=== PATIENT | male | born 1950 | race Caucasian/White ===

== ENCOUNTER 2017-10-13 20:12 | Emergency (ER) | payer MEDICAID ==
[~2017-10-13 20:12] MED LIST: AMOXICILLIN/CLAVULANATE POT 875/125 MG TAB PO SCH; AZITHROMYCIN 250 MG TAB PO SCH
[2017-10-13] MEDS ORDERED: IPRATROPIUM/ALBUTEROL 3 ML DEYVIAL IH ONE (20:27)
[2017-10-13] MEDS ORDERED: AZITHROMYCIN 250 MG TAB PO ONE (20:27)
[2017-10-13] MEDS ORDERED: AMOXICILLIN/CLAVULANATE POT 875/125 MG TAB PO ONE (20:29)
--- NOTE | 2017-10-13 20:31 | EDPHY ---
H & P Stated Complaint: Cough since sunday-from halfway Time Seen by Provider: 10/13/17 20:24 HPI/ROS: CHIEF COMPLAINT: Short of breath HISTORY OF PRESENT ILLNESS: The patient is a 67-year-old man who comes to the emergency department from the homeless halfway complaining of shortness of breath and a cough productive of yellow sputum. He is saturating 91% on room air. He denies history of pulmonary disease. No chest pain. No swelling or edema. He does not think he has had a fever. Severity: Moderate Modifying factors: Exertion REVIEW OF SYSTEMS: Constitutional: denies: chills, fever, recent illness, recent injury EENTM: denies: blurred vision, double vision, nose congestion Respiratory: See HPI Cardiac: denies: chest pain, irregular heart rate, lightheadedness, palpitations Gastrointestinal/Abdominal: denies: abdominal pain, diarrhea, nausea, vomiting, blood streaked stools Genitourinary: denies: dysuria, frequency, hematuria, pain Musculoskeletal: denies: joint pain, muscle pain Skin: denies: lesions, rash, jaundice, bruising Neurological: denies: headache, numbness, paresthesia, tingling, dizziness, weakness Hematologic/Lymphatic: denies: blood clots, easy bleeding, easy bruising Immunologic/allergic: denies: HIV/AIDS, transplant 10 systems reviewed and negative except as noted EXAM: GENERAL: Well-appearing, well-nourished and in no acute distress. HEAD: Atraumatic, normocephalic. EYES: Pupils equal round and reactive to light, extraocular movements intact, sclera anicteric, conjunctiva are normal. ENT: TMs normal, nares patent, oropharynx clear without exudates. Moist mucous membranes. NECK: Normal range of motion, supple without lymphadenopathy or JVD. LUNGS: Very slight wheezing, HEART: Regular rate and rhythm without murmurs, rubs or gallops. ABDOMEN: Soft, nontender, normoactive bowel sounds. No guarding, no rebound. No masses appreciated. BACK: No CVA tenderness, no spinal tenderness, step-offs or deformities EXTREMITIES: Normal range of motion, no pitting or edema. No clubbing or cyanosis. NEUROLOGICAL: Cranial nerves II through XII grossly intact. Normal speech, normal gait. 5/5 strength, normal movement in all extremities, normal sensation , normal reflexes PSYCH: Normal mood, normal affect. SKIN: Warm, dry, normal turgor, no visible rashes or lesions. Source: Patient Exam Limitations: No limitations - Personal History Current Tetanus Diphtheria and Acellular Pertussis (TDAP): No - Medical/Surgical History Hx Asthma: No Hx Chronic Respiratory Disease: No Hx Diabetes: Yes Hx Cardiac Disease: Yes Hx Renal Disease: No Hx Cirrhosis: No Hx Alcoholism: No Hx HIV/AIDS: No Hx Splenectomy or Spleen Trauma: No Other PMH: Stent x1, [place]?, depression, DM2, - Family History Significant Family History: No pertinent family hx - Social History Smoking Status: Current every day smoker Alcohol Use: Heavy Drug Use: Marijuana Constitutional: Initial Vital Signs Temperature (C) 37.1 C 10/13/17 20:17 Heart Rate 78 10/13/17 20:17 Respiratory Rate 16 10/13/17 20:17 Blood Pressure 134/72 H 10/13/17 20:17 O2 Sat (%) 91 L 10/13/17 20:17 O2 Delivery Mode Room Air Allergies/Adverse Reactions: No Known Allergies Allergy (Unverified 10/13/17 20:14) Home Medications: Medication Instructions Recorded Amoxicillin/Clavulanate Pot 875 mg PO BID #14 tab 10/13/17 [Augmentin 875Mg] Aspirin 325 mg (*) 10/13/17 Azithromycin [Zithromax] 250 mg PO DAILY #6 tab 10/13/17 HumuLIN R 10/13/17 Lisinopril 10/13/17 Metformin HCl ER 10/13/17 Metoprolol Succinate 10/13/17 [place]-3 10/13/17 Otc Cough Meds 10/13/17 Prozac 20 MG (*) 10/13/17 Rosuvastatin Calcium 10/13/17 Medical Decision Making - Diagnostics EKG Interpretation: An EKG obtained and was read and documented in trace view. Please see trace view for full reading and report. Sinus rhythm, no acute ischemic changes, similar to previous Imaging Results: Imaging Impressions Chest X-Ray 10/13/17 20:27 Impression: Mild bronchitis. Mild increase in lung markings at both lung bases, which could represent mild scarring, atelectasis, or early infiltrate. Imaging: Discussed imaging studies w/ house calls nurse Radiologist ED Course/Re-evaluation: 9:20 p.m. the patient's sats remained in the low 90s. Occasionally drops below 90 but is easily able to recover. He has sleep apnea and wears BiPAP at night. I suspect he is always somewhat low. We discussed plans. He would prefer to go back to the halfway and take antibiotics. I encouraged him to return if his symptoms worsen. Will start him on Augmentin and azithromycin as well as give him a take-home albuterol. Will fill his prescriptions for him here. Differential Diagnosis: Partial list of the Differential diagnosis considered include but were not limited to; bronchitis, pneumonia, COPD and although unlikely based on the history and physical exam, I also considered DKA, sepsis, acute coronary disease. I discussed these differential diagnoses and the plan with the patient as well as the usual and expected course. The patient understands that the diagnosis is provisional and that in medicine we are not always correct and that further workup is often warranted. Usual and customary warnings were given. All of the patient's questions were answered. The patient was instructed to return to the emergency department should the symptoms at all worsen or return, otherwise to followup with the physician as we discussed. - Data Points Medications Given: Discontinued Medications Albuterol Sulfate (Proventil Inh Prepack) 1 mdi TAKEHOME EDNOW ONE Stop: 10/13/17 21:23 Last Admin: 10/13/17 21:39 Dose: 1 mdi Albuterol/Ipratropium (Duoneb) 3 ml IH EDNOW ONE Stop: 10/13/17 20:28 Last Admin: 10/13/17 20:33 Dose: 3 ml Amoxicillin/Clavulanate Potassium (Augmentin 875mg) 875 mg PO EDNOW ONE PRN Reason: Protocol Stop: 10/13/17 20:30 Last Admin: 10/13/17 20:33 Dose: 875 mg Azithromycin (Zithromax) 500 mg PO EDNOW ONE PRN Reason: Protocol Stop: 10/13/17 20:28 Last Admin: 10/13/17 20:33 Dose: 500 mg Ceftriaxone Sodium/Dextrose (Rocephin 1 Gm (Premix)) 50 mls @ 100 mls/hr IV EDNOW ONE PRN Reason: Protocol Stop: 10/13/17 20:56 Last Admin: 10/13/17 20:37 Dose: Not Given Departure - Departure Disposition: Home, Routine, Self-Care Clinical Impression: Acute bronchitis Qualifiers: Bronchitis organism: unspecified organism Qualified Code(s): J20.9 - Acute bronchitis, unspecified Condition: Fair Instructions: Albuterol (By breathing), Acute Bronchitis (ED) Referrals: Patient,NotPresent [Unknown] - As per Instructions [facility],. [Clinic] - 1-2 days without fail Prescriptions: Amoxicillin/Clavulanate Pot [Augmentin 875Mg] 875 mg PO BID #14 tab Azithromycin [Zithromax] 250 mg PO DAILY #6 tab
--- NOTE | 2017-10-13 20:40 | CPEKG ---
Test Reason : OPEN Blood Pressure : / mmHG Vent. Rate : 078 BPM Atrial Rate : 078 BPM P-R Int : 169 ms QRS Dur : 105 ms QT Int : 467 ms P-R-T Axes : 038 -41 039 degrees QTc Int : 533 ms Sinus rhythm Left axis deviation Prolonged QT interval Confirmed by Donny Quintero ([id number]) on 10/13/2017 8:39:39 PM Referred By: Confirmed By:Donny Quintero
[2017-10-13] MEDS ORDERED: ALBUTEROL INH PREPACK MDI TAKEHOME ONE (21:22)
[2017-10-13 21:45] VITALS: BP 134/80
== END 2017-10-13 21:42 | disposition home or self-care (01) ==
LOC: EDUNIT#
DX: J20.9 Acute bronchitis, unspecified (principal); F17.200 Nicotine dependence, unspecified, uncomplicated; G47.30 Sleep apnea, unspecified; Z59.0 Homelessness

== ENCOUNTER 2017-10-15 04:33 | Inpatient (IN) | payer OTHER, MEDICAID ==
[2017-10-15] MEDS ORDERED: NS 1,000 ML IV ONE ×3 (04:49→06:09)
[2017-10-15] MEDS ORDERED: IPRATROPIUM/ALBUTEROL 3 ML DEYVIAL IH ONE ×2 (04:50→06:53)
[2017-10-15] MEDS ORDERED: methylPREDNISolone SOD SUCC 125 MG/2 ML VIAL IVP ONE ×2 (04:51→13:06)
--- NOTE | 2017-10-15 04:52 | EDPHY ---
H & P Stated Complaint: weakness, sore throat, rash Time Seen by Provider: 10/15/17 04:51 HPI/ROS: HPI CHIEF COMPLAINT: Generalized weakness, rash, feeling unwell, sore throat pain in his extremity specifically left arm left wrist. HISTORY OF PRESENT ILLNESS: 67-year-old male from the homeless detention by EMS for generalized weakness, not feeling well, rash, painful extremities, main is left arm left wrist, also a cough productive in sputum, additionally sore throat. Additionally patient feels nauseous. No chest pain. He presents emergency room from the homeless detention with multiple complaints however upon arrival he has a room air saturation of 77%. Productive cough. Wheezing throughout lung stoll. And also has a rash that is raised erythematous with some central clearing. It does elida. I do not appreciate petechiae purpura. No abscess. There is also noted same left wrist and left forearm redness and warmth and tender palpation with range of motion of the left wrist and left fingers. Of note additionally this patient is a poor historian. Past Medical History: Hypertension, diabetes, obstructive sleep apnea, cardiac stent, Past Surgical History: No recent surgery Social History: Ongoing tobacco abuse. Homeless. Family History: Noncontributory ROS REVIEW OF SYSTEMS: Review of systems limited due to patient being a poor historian. Exam Constitutional poor historian. Sick appearing, however nontoxic, triage nursing summary reviewed, vital signs reviewed, awake/alert. Room air saturation 77% with good waveform. Eyes normal conjunctivae and sclera, EOMI, PERRLA. HENT posterior pharynx I do not appreciate a significant swelling. However there is poor dentition, additionally mucus that is yellow in nature in his posterior pharynx. I do not appreciate stiff neck, moist mucus membranes, no stridor. Not drooling. No signs of Eloy's on exam. Respiratory clear to auscultation bilaterally, normal breath sounds, no respiratory distress, no wheezing. Cardiovascular rate normal, regular rhythm, no murmur, no edema, distal pulses normal. Gastrointestinal soft, non-tender, no rebound, no guarding, normal bowel sounds, no distension, no pulsatile mass. Genitourinary no CVA tenderness. Musculoskeletal no midline vertebral tenderness, full range of motion, no calf swelling, no tenderness of extremities, no meningismus, good pulses, neurovascularly intact. Skin diffuse rash erythematous with central clearing and raised, no particular purpura. No skin sloughing. Neurologic awake, alert and oriented x 3, AAOx3, moves all 4 extremities equally, motor intact, sensory intact, CN II-XII intact, normal cerebellar, normal vision, normal speech. Psychiatric normal mood/affect. Heme/Lymph/Immune no lymphadenopathy. Differential Diagnosis: Includes but is not limited to in a particular order acute pneumonia, sepsis, bacteremia, viral syndrome, throat infection, electrolyte disturbance, dehydration, allergic reaction, rash Medical Decision Making: Plan for this patient IV establishment blood cultures , lactic acid, regular blood work, DuoNeb breathing treatment, IV fluid bolus, IV Solu-Medrol, will perform a CT scan soft tissue neck with IV contrast rule out deep space neck abscess given sore throat, high white count, and patient appearing not very well. Will give broad-spectrum antibiotics IV Zosyn IV vanc. Repeat chest x-ray. Re-evaluation: ED x-ray chest one view: Shows a right lower lobe infiltrate. Blurs the right cardiac border. Additionally there is crowding above the upper lobes of the lung. EKG interpretation by me on record in [employer] system. Impression time of EKG 455: Sinus rhythm rate of 91, PVC present. Left anterior fascicular block present. Q-waves V1 V2 V3. CT soft tissue neck with IV contrast shows no abscess. Called to me by Dr. Austin. This CT chest without contrast shows right lower lobe pneumonia. Additionally small area of left lower lobe. This explains hypoxia high white count. Patient has had broad-spectrum antibiotics. Patient is not hypotensive. He is afebrile. He does require supplemental oxygen. 0610AM: Patient noted to have elevated lactic over 4 indicating septic shock. The patient is not hypotensive. Severe sepsis and septic shock protocol has been initiated. Patient is already received 2 L of fluid. Will add 1/3 L fluid for fluid resuscitation. He has already received broad-spectrum antibiotics. The patient is in septic shock with source of pneumonia, blood cultures been pulled. Urine culture, sputum culture, IV vanc and IV Zosyn. He is currently being resuscitated with 3 L of fluid. Patient additionally is dry on exam is hypovolemic. Plan will be to repeat lactic acid after his 3rd L fluid. Watch blood pressure closely. This time he does not need vasopressors. 0654AM: Patient's lactic acid improving. 3.1. Source: Patient, EMS - Personal History Current Tetanus/Diphtheria Vaccine: Yes - Medical/Surgical History Hx Asthma: No Hx Chronic Respiratory Disease: No Hx Diabetes: Yes Hx Cardiac Disease: Yes Hx Renal Disease: No Hx Cirrhosis: No Hx Alcoholism: No Hx HIV/AIDS: No Hx Splenectomy or Spleen Trauma: No Other PMH: Stent x1, [place]?, depression, DM2, sleep apnea, HTN, - Social History Smoking Status: Current every day smoker Constitutional: Initial Vital Signs Temperature (C) 36.6 C 10/15/17 04:45 Heart Rate 93 10/15/17 04:45 Respiratory Rate 16 10/15/17 04:45 Blood Pressure 126/68 H 10/15/17 04:45 O2 Sat (%) 88 L 10/15/17 04:45 O2 Delivery Mode Oxymizer O2 (L/minute) 5 Allergies/Adverse Reactions: No Known Allergies Allergy (Verified 10/15/17 04:48) Home Medications: Medication Instructions Recorded Albuterol [Proventil Inhaler HFA 1 - 2 puffs IH Q4H PRN 10/15/17 (*)] Aspirin [Aspirin 325 mg (*)] 325 mg PO DAILY 10/15/17 Insulin Regular Human [Humulin R 70 unit SC BID 10/15/17 100 units/ml (*)] Lisinopril [Zestril 20 mg (*)] 20 mg PO DAILY 10/15/17 Metoprolol Succinate Xr [Toprol Xl 25 mg PO DAILY 10/15/17 25 mg (*)] [place]-3 Fatty Acids [Fish Oil 1000 2,000 mg PO BID 10/15/17 mg (*)] Rosuvastatin Calcium [Crestor 20mg 20 mg PO DAILY 10/15/17 (*)] metFORMIN HCL [Metformin HCl ER] 1,000 mg PO BID 10/15/17 FLUoxetine [Prozac 20 MG (*)] 60 mg PO DAILY 10/16/17 Medical Decision Making - Data Points Laboratory Results: Laboratory Results 10/15/17 04:52 10/15/17 04:52 Microbiology Results: MICROBIOLOGY 10/15/17 04:55 Blood Blood Culture - Preliminary 10/15/17 05:32 Blood Blood Culture - Preliminary Gram Positive Cocci Clusters 10/15/17 05:32 Blood Blood Panel (PCR) - Final Staph Coagulase Negative Medications Given: Acetaminophen (Tylenol) 650 mg PO Q4HRS PRN PRN Reason: Pain, Mild/Fever, Can Take PO Stop: 04/13/18 08:07 Last Admin: 10/16/17 20:07 Dose: 650 mg Albuterol (Proventil Neb) 3 ml IH Q2HRS PRN PRN Reason: Short of Breath/Dyspnea Stop: 04/13/18 08:07 Last Admin: 10/16/17 18:12 Dose: 3 ml Enoxaparin Sodium (Lovenox) 40 mg SC DAILY [facility]ACOS Stop: 04/13/18 08:59 Last Admin: 10/16/17 09:36 Dose: 40 mg Famotidine (Pepcid) 20 mg PO BID TACOS Stop: 04/14/18 20:59 Last Admin: 10/16/17 20:06 Dose: 20 mg Sodium Chloride (Ns) 1,000 mls @ 125 mls/hr IV CONT [facility]ACOS Stop: 04/13/18 08:14 Last Admin: 10/16/17 22:15 Dose: 1,000 mls Levofloxacin/Dextrose (Levaquin 750 Mg (Premix)) 150 mls @ 100 mls/hr IV DAILY TACOS PRN Reason: Protocol Stop: 11/14/17 09:59 Last Admin: 10/16/17 09:36 Dose: 150 mls Norepinephrine 4 mg/ Sodium (Chloride) 504 mls @ 0 mls/hr IV CONT TACOS; Per Protocol PRN Reason: Protocol Stop: 04/13/18 13:29 Last Admin: 10/15/17 20:08 Dose: 504 mls Insulin Glargine (Lantus Syringe) 30 units SC HS [facility] Stop: 04/14/18 03:14 Last Admin: 10/16/17 20:51 Dose: 30 units Melatonin (Melatonin) 6 mg PO HS [facility] Stop: 04/13/18 23:44 Last Admin: 10/16/17 20:07 Dose: 6 mg [place]ug[place]-8-Guop Ethyl Esters (Fish Oil) 2,000 mg PO BID TACOS Stop: 04/14/18 20:59 Last Admin: 10/16/17 20:06 Dose: 2,000 mg Discontinued Medications Albuterol/Ipratropium (Duoneb) 3 ml IH EDNOW ONE Stop: 10/15/17 04:51 Last Admin: 10/15/17 05:02 Dose: 3 ml Albuterol/Ipratropium (Duoneb) 3 ml IH EDNOW ONE Stop: 10/15/17 06:54 Last Admin: 10/15/17 06:54 Dose: 3 ml Sodium Chloride (Ns) 1,000 mls @ 0 mls/hr IV EDNOW ONE; Wide Open PRN Reason: Protocol Stop: 10/15/17 04:50 Last Admin: 10/15/17 05:02 Dose: 1,000 mls Sodium Chloride (Ns) 1,000 mls @ 0 mls/hr IV ONCE ONE PRN Reason: Wide Open Stop: 10/15/17 05:09 Last Admin: 10/15/17 05:33 Dose: 1,000 mls Vancomycin/Sodium Chloride (Vancomycin 1 Gm (Premix)) 250 mls @ 250 mls/hr IV EDNOW ONE PRN Reason: Protocol Stop: 10/15/17 06:08 Last Admin: 10/15/17 05:38 Dose: 250 mls Piperacillin/Tazobactam/Dextrose (Zosyn (Premix)) 100 mls @ 200 mls/hr IV EDNOW ONE PRN Reason: Protocol Stop: 10/15/17 05:38 Last Admin: 10/15/17 05:34 Dose: 100 mls Sodium Chloride (Ns) 1,000 mls @ 0 mls/hr IV ONCE ONE PRN Reason: Wide Open Stop: 10/15/17 06:10 Last Admin: 10/15/17 06:12 Dose: 1,000 mls Lactated Ringer's (Lr) 1,000 mls @ 500 mls/hr IV EDNOW ONE Stop: 10/15/17 09:07 Last Admin: 10/15/17 07:25 Dose: 1,000 mls Norepinephrine 4 mg/ Sodium (Chloride) 504 mls @ 0 mls/hr IV CONT TACOS; Per Protocol PRN Reason: Protocol Stop: 04/13/18 13:29 Last Admin: 10/15/17 13:35 Dose: 504 mls Famotidine/Sodium Chloride (Pepcid 20 Mg (Premix)) 50 mls @ 200 mls/hr IV Q12 [facility] Stop: 04/13/18 20:59 Last Admin: 10/16/17 09:36 Dose: 50 mls Vancomycin HCl 1.25 gm/ Sodium (Chloride) 250 mls @ 166.667 mls/hr IV Q12H [facility] Stop: 11/14/17 16:59 Last Admin: 10/16/17 05:55 Dose: 250 mls Meropenem 1 gm/ Sodium (Chloride) 100 mls @ 100 mls/hr IV Q8H [facility] Stop: 11/14/17 15:59 Last Admin: 10/16/17 09:08 Dose: 100 mls Calcium Gluconate 1 gm/ (Dextrose) 60 mls @ 120 mls/hr IV ONCE ONE Stop: 10/15/17 17:59 Last Admin: 10/15/17 18:26 Dose: 60 mls Calcium Gluconate (Calcium Gluconate 1 Gm (Premix)) 50 mls @ 100 mls/hr IV ONCE ONE Stop: 10/16/17 04:36 Last Admin: 10/16/17 05:13 Dose: Not Given Calcium Gluconate 1 gm/ Sodium (Chloride) 60 mls @ 120 mls/hr IV ONCE ONE Stop: 10/16/17 04:59 Last Admin: 10/16/17 04:20 Dose: 60 mls Sodium Chloride (Ns) 500 mls @ 0 mls/hr IV ONCE ONE PRN Reason: Wide Open Stop: 10/16/17 18:31 Last Admin: 10/16/17 18:48 Dose: 500 mls Insulin Human Lispro (Humalog Lispro) 0 unit SC TIDMEAL [facility] PRN Reason: Protocol Stop: 04/13/18 17:59 Last Admin: 10/15/17 18:22 Dose: 6 units Insulin Human Lispro (Humalog Lispro) 10 unit SC ONCE ONE Stop: 10/15/17 22:48 Last Admin: 10/15/17 23:38 Dose: 10 units Insulin Human Lispro (Humalog Lispro) 0 unit SC ACHS [facility] PRN Reason: Protocol Stop: 04/14/18 07:29 Last Admin: 10/16/17 18:20 Dose: 10 units Insulin Human Lispro (Humalog Lispro) 10 unit SC ONCE ONE Stop: 10/16/17 18:31 Last Admin: 10/16/17 18:46 Dose: Not Given Methylprednisolone Sodium Succinate (Solu-Medrol) 125 mg IVP EDNOW ONE Stop: 10/15/17 04:52 Last Admin: 10/15/17 05:05 Dose: 125 mg Methylprednisolone Sodium Succinate (Solu-Medrol) 60 mg IVP Q6HRS [facility] Stop: 04/13/18 11:59 Last Admin: 10/15/17 12:13 Dose: 60 mg Methylprednisolone Sodium Succinate (Solu-Medrol) 60 mg IVP ONCE ONE Stop: 10/15/17 13:07 Last Admin: 10/15/17 13:35 Dose: 60 mg Methylprednisolone Sodium Succinate (Solu-Medrol) 125 mg IVP Q6HRS [facility] Stop: 04/13/18 17:59 Last Admin: 10/16/17 06:16 Dose: 125 mg Point of Care Test Results: Chemistry 10/15/17 10/15/17 05:05 05:01 POC Sodium 133 mEq/L L mEq/L (135-145) POC Potassium 4.2 mEq/L mEq/L (3.3-5.0) POC Chloride 98 mEq/L mEq/L (97-110) POC BUN 34 mg/dL H mg/dL (7-23) POC Creatinine 1.6 mg/dL H mg/dL (0.7-1.3) POC Glucose 177 mg/dL H mg/dL (70-100) POC Troponin I 0.04 ng/mL ng/mL (0.00-0.08) ISTAT H&H 10/15/17 05:01 POC Hgb 19.0 gm/dL H gm/dL (13.7-17.5) POC Hct 56 % H % (40-51) Departure - Departure Disposition: [facility] Inpatient Acute Clinical Impression: Hypoxic, Septic shock Pneumonia Qualifiers: Pneumonia type: due to unspecified organism Laterality: right Lung location: lower lobe of lung Qualified Code(s): J18.1 - Lobar pneumonia, unspecified organism Sepsis Qualifiers: Sepsis type: sepsis due to unspecified organism Qualified Code(s): A41.9 - Sepsis, unspecified organism Condition: Fair
[2017-10-15 04:57] LABS: PLATELET COUNT 379 10^3/uL (150-400)
[2017-10-15] MEDS ORDERED: IOPAMIDOL (ISOVUE-300) 100 ML BTL ONE (04:58)
[2017-10-15] MEDS ORDERED: ONDANSETRON 4 MG/2 ML VIAL ONE (05:03)
[2017-10-15 05:05] LABS: INR 1.34 (0.83-1.16); PROTIME(PATIENT) 16.8 SEC (12.0-15.0)
[2017-10-15] MEDS ORDERED: VANCOMYCIN HCL/NORMAL SALINE 250 ML IV ONE (05:09)
[2017-10-15] MEDS ORDERED: PIPERACILLIN/TAZO 4.5 GM/DEX 100 ML IV ONE (05:09)
[2017-10-15] MEDS ORDERED: IPRATROPIUM/ALBUTEROL 3 ML DEYVIAL ONE (06:51)
[2017-10-15] MEDS ORDERED: LR 1,000 ML IV ONE (07:08)
[2017-10-15] MEDS ORDERED: ONDANSETRON 4 MG/2 ML VIAL IVP PRN (08:08)
[2017-10-15] MEDS ORDERED: ALBUTEROL 3 ML DEYVIAL IH PRN (08:08)
--- NOTE | 2017-10-15 09:31 | GHP ---
DATE OF ADMISSION: 10/15/2017 CHIEF COMPLAINT: Sepsis, hypoxia. HISTORY OF PRESENT ILLNESS: A 67-year-old homeless male with coronary disease, diabetes, hypertensio n brought in from halfway with generalized weakness. He was evaluated at [facility] ER on October 13 for shortness of breath and productive cough. Was discharged and prescribed Augmenti n. Symptoms have progressed: He complains of fevers, chills, productive cough, sore throat, and fat igue. He has had loose stools for several days. No nausea, vomiting, decreased p.o. intake. Compla ins of joint pain in his hands and his wrist. He developed a rash sometime over this past week, he c annot clarify the date. He was in a hot tub a few days ago. The skin eruptions began prior to start ing Augmentin. Denies chest pain. In the ER, he had a room air saturation of 77%. He has been living in a halfway for the past 10 days. He had a place to stay prior to that. He has not had any exposures to any animals. No recent travel. He thinks he may have had some bug bites in his left groin a few days ago. REVIEW OF SYSTEMS: I completed a 10-point review of systems, negative except as noted in HPI. PAST MEDICAL HISTORY: Hypertension, diabetes, GIANFRANCO, NSTEMI with RCA stent. PAST SURGICAL HISTORY: PCI. SOCIAL HISTORY: He is homeless. He has currently been in a halfway for the past 10 days. He smoked a half-pack of cigarettes for over 30 years. No alcohol or illicits. FAMILY HISTORY: Brother with heart disease. HOME MEDICATIONS: Crestor, Prozac, metoprolol, metformin, lisinopril, Humulin, azithromycin, Augment in, aspirin. ALLERGIES: No known drug allergies. PHYSICAL EXAM: VITAL SIGNS: Temperature in 36.5; blood pressure 98/65 at admission, now 145/85 afte r fluids; heart rate is in the 80s, respirations 20 to 30s, 77% on room air, 90% on 12 L Oxymizer. G ENERAL: He is ill-appearing, but no acute distress. HEENT: PERRLA. Dry mucous membranes. Orophar ynx is dry with mild erythema. No exudate. NECK: No palpable mass in neck. CV: Regular rate and rhythm. LUNGS: Diminished. Rhonchi throughout. ABDOMEN: Soft, nontender, nondistended. Positive bowel sounds. : No Wang. No suprapubic or CVA tenderness. MUSCULOSKELETAL: Bilateral hands a re swollen. Tenderness over his joints. Mild synovitis. SKIN: Raised maculopapular rash over uppe r chest, arms and legs and groin. The back is not involved. NEURO: 2 through 12 intact. PSYCH: A lert and oriented. Very pleasant. LABS: Sodium is 133, potassium 4.2, chloride 98, BUN 34, creatinine is 1.6, glucose 177. Troponin 0 .04. BNP is 780, calcium 9.4, mag 1.8, total bilirubin 1, conjugated 0.3, AST 26, ALT 39, total prot ein 6.6, albumin 3.4, INR 1.3, PT 16; lactate 4.1, repeat is 3.1. WBC 34. Hemoglobin 18, hematocrit 53, platelets are 379. Urine is pending. Chest x-ray, personally reviewed by me, right lower lobe opacity, which has evolved since x-ray on . Chest CT, personally reviewed by me, right lower lobe opacity, radiologist callum w is pending. CT is pending. EKG personally reviewed by me, normal sinus rhythm with PVCs. Q-waves anterior leads. ASSESSMENT AND PLAN: Severe sepsis: Elevated white count, pneumonia, tachycardia, lactic acidosis. Evidence of pneumonia. CT scan is pending. Was dosed vancomycin and Zosyn in the ER. Will continu e with Levaquin because may have possible penicillin allergy with rash. DICTATION CANCELLED /[id number]/MODL
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
--- NOTE | 2017-10-15 11:00 | ASMTLACE ---
LACE Length of stay for Answers: Less than 1 day current admission Acuity / Level of Answers: Yes Care: Did the patient have an inpatient admission? # of Emergency department Answers: 1-2 visits in the last 6 months Social determinants Answers: Homelessness (street, intermediate) Lack of community resources and/or lack of social support (no pcp, lives alone, transportation, actarino d) Score: 11 Date Signed: 10/15/2017 11:00 AM Electronically Signed By:Marilyn Ziegler LCSW
[2017-10-15] MEDS ORDERED: ALTEPLASE 2 MG VIAL IVP PRN (11:05)
[2017-10-15] MEDS ORDERED: levOFLOXACIN 750 MG/DEXTROSE/150 ML BAG IV ONE (11:13)
--- NOTE | 2017-10-15 11:13 | ASMTCMCOM ---
CM Note CM Note Notes: Pt is currently living at the [facility]. This caption writer attempted to speak with pt. but due to his current condition (sepsis, pneumonia) he was extremely lethargic and unable to arouse. Pt has not been in the area for some time. His chart indicates that he is retired but income is unknown. Additional resources and assessment may be beneficial. DESHAUN THOMAS CM to follow Date Signed: 10/15/2017 11:12 AM Electronically Signed By:Marilyn Ziegler LCSW
[2017-10-15] MEDS: NS 1,000 ML IV SCH ×2 (11:21→23:39)
[2017-10-15] MEDS: ENOXAPARIN 40 MG/0.4 ML SYR SC SCH (11:34)
[2017-10-15] MEDS ORDERED: methylPREDNISolone SOD SUCC 125 MG/2 ML VIAL IVP SCH ×2 (12:00→13:07)
[2017-10-15] MEDS ORDERED: PIPERACILLIN/TAZO 4.5 GM/DEX 100 ML IV SCH (12:00)
[2017-10-15] MEDS ORDERED: methylPREDNISolone SOD SUCC 125 MG/2 ML VIAL ONE (12:11)
[2017-10-15] MEDS ORDERED: NOREPINEPHRINE BITARTRATE 4 MG in D5W 500 ML IV SCH (13:30)
[2017-10-15] MEDS ORDERED: NOREPINEPHRINE BITARTRATE 16 MG in NS 250 ML IV SCH (13:30)
[2017-10-15] MEDS ORDERED: NOREPINEPHRINE BITARTRATE 4 MG in NS 500 ML IV SCH (13:30)
--- NOTE | 2017-10-15 13:43 | GCON ---
SUPERVISOR PIPE FINISHING CONSULTATION REASON FOR ADMISSION: Pneumonia, acute respiratory failure, shock. Mr. Moreira is a pleasant 67-yea r-old white male with a past medical history of hypertension, obstructive sleep apnea, coronary arter y disease with a stent placed, diabetes and hypertension. He was brought from a fdc with general ized weakness. He was seen previously in the emergency room here and discharged on Augmentin. He re turns with fever and chills, as well as a cough that is productive of greenish sputum. He denies hem optysis. He denies any chest pain, pleuritic-type chest pain or angina equivalent. There is no feve r or night sweats. He began having a rash that occurred prior to taking Augmentin apparently. In th e emergency room he was found to be markedly hypoxemic and he was admitted to the intensive care unit . In discussion with the patient, he states he feels somewhat better. He is less breathless, but hi s cough remains. REVIEW OF SYSTEMS: 10-point review of systems is performed and negative except for what is listed in HPI. PAST MEDICAL HISTORY: Again, significant for coronary artery disease with a stent, obstructive sleep apnea, hypertension, diabetes. PAST SURGICAL HISTORY: Again, he has had a stent. ALLERGIES: No known allergies to medications. SOCIAL HISTORY: He is a 40+ pack-year smoker and continues to smoke. Denies any alcohol use. He is homeless. 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 He is single, without children. He has lived in [facility] for many years, but is really from [place]. FAMILY HISTORY: Noncontributory. MEDICATIONS: Include; aspirin, Augmentin, Humulin, azithromycin, lisinopril, metformin, metoprolol, Prozac, and Crestor. PHYSICAL EXAM: VITAL SIGNS: Blood pressure is 84/48, pulse is 88, respirations 32, temperature 37.0 , oxygen saturation is 92% on 10 L OxyMask. GENERAL: He is a well-developed 67-year-old white male who is resting comfortably on supplemental oxygen. HEENT: Eyes STARR, EOMI. Throat exam is deferred secondary to oxygen. NECK: Supple. No cervical adenopathy. HEART: Regular rate and rhythm with a 2/6 systolic murmur left sternal border without radiation. LUNGS: Diminished breath sounds with s ignificant prolongation expiratory phase and few bibasilar crackles. ABDOMEN: Soft, nontender. [place] el sounds are present in all 4 quadrants. EXTREMITIES: No clubbing, cyanosis, or edema. SKIN: The re is a raised maculopapular rash extending in the groin, legs, arms, upper chest. LABORATORIES: White count 77524, hemoglobin 18, hematocrit 53, platelet count is 379. INR is 1.34. Sodium 133, potassium 4.2, chloride 98, CO2 is 22, BUN is 32, creatinine 1.5, glucose is 143. BNP i s elevated at 780. CT scan of the chest without contrast shows moderate bronchitis as well as bilateral pneumonia in the bases. IMPRESSION: 1. Pneumonia. 2. Acute respiratory failure secondary to above. 3. Severe sepsis. 4. Shock. 5. Mild renal insufficiency, probably prerenal. 6. History of hypertension. 7. Diabetes. 8. Obstructive sleep apnea. 9. History of coronary artery disease. RECOMMENDATIONS: 1. Agree with Admission Intensive Care Unit. 2. We will start IV pressors. 3. Hydration. He has already received 3 L of normal saline. 4. IV antibiotics as you are doing. 5. Nebulized both albuterol and Atrovent. 6. We will increase his Solu-Medrol to 125 q.6. 7. DVT and PE prophylaxis. 8. Aggressive blood sugar control. 9. Sepsis protocol. /[id number]/MODL
[2017-10-15] MEDS ORDERED: FAMOTIDINE 20 MG/NACL 50 ML IV SCH (13:45)
[2017-10-15] MEDS ORDERED: D50W 25 GM/50 ML SYR IVP PRN (15:33)
[2017-10-15] MEDS: MEROPENEM 1 GM in NS 100 ML IV SCH ×2 (15:47→23:39)
--- NOTE | 2017-10-15 16:02 | GCON ---
INFECTIOUS DISEASE CONSULT DATE OF CONSULTATION: 10/15/2017 REFERRING PHYSICIAN: Jimena Torres MD REASON FOR CONSULT: To assist in the management of this 67-year-old homeless male, admitted with sepsis. HISTORY OF PRESENT ILLNESS: Please note, the history was obtained from the chart and the patient. The patient was fairly short of breath when I examined him and unable to provide significant medical history. The patient is a 67-year-old male whose previous medical history is notable for the followin. Diabetes mellitus: This is followed at the [facility]. The patient states that his most recent hemoglobin A1c was "down.". 2. Obstructive sleep apnea. 3. NSTEMI with RCA stent. 4. Hypertension. 5. Heavy smoker. Regarding his present issues, the patient states that he began to feel unwell perhaps on October 11 or so. He states that he felt very tired and generally felt unwell. He developed a sore throat and a cough. He presented to [facility] Emergency Department in the evening of October 13, where his vital signs were notable for an oxygen saturation of 90% on room air, that dropped below 90% intermittently. A chest x-ray was performed that showed increased lung markings at both lung bases, that could represent mild scarring, atelectasis, or early infiltrate. The patient was given a dose of ceftriaxone intravenously, and discharged with Augmentin 875 mg p.o. b.i.d. for 7 days, a Z- Charles, and an albuterol inhaler. He was told to follow up with the [facility]. The patient states that he took "a few doses" of the antibiotics, but continued to feel unwell. Because of that, he re-presented to [facility] Emergency Department early this morning, at which point he was complaining of weakness, a new rash, and a significant cough and sore throat. The patient had a room air saturation of 77% upon arrival with a productive cough. He had a CT scan of the chest that showed right lower lobe and mild left lower lobe infiltrates. His white blood cell count was found to be elevated at 34,000. The patient was admitted to the intensive care unit and given a dose of vancomycin and Zosyn. However, because of the rash, the Zosyn was discontinued and the patient was given a dose of levofloxacin. He is unfortunately decompensating and now requiring pressors. I am now asked to assist in his management. In speaking with the patient today, he is complaining of a mild sore throat and a cough. He does not know when the rash started. He states that it is not pruritic. The note from the emergency room on October 13 does not comment on any rash. He states he has no recent travel within or outside the [facility]. He has recently become homeless over the past 10 days, when he states he was living in a house with some other roommates. Ultimately, he states that he was the only 1 living there after a point in time, but the owners of the house gracefully evicted him, he tells me. He has been living in a [place] homeless intermediate again for the past 10 days. He also states he just recently had a negative TB test. He has no pets. No recent vaccinations. He states he did receive all of his childhood vaccinations. He has gone to the hot tub at the [facility] twice, most recently 4 days ago, but he states that he began to feel sick prior to any exposure to the hot tub per se. No exposure to birds. He is a heavy smoker as outlined above. No other illicit substances. He is not presently sexually active. He states that his last sexual activity was "years ago." He is not around small children. REVIEW OF SYSTEMS: As per the above. Notable for sore throat, cough, and shortness of breath. The patient also had some pain in his fingers which he says is new. Otherwise 10 systems are reviewed and all are negative. PREVIOUS MEDICAL HISTORY: As outlined above. PREVIOUS SURGICAL HISTORY: None. FAMILY HISTORY: Brother with heart disease. SOCIAL HISTORY: As outlined above, including exposure history. The patient is a heavy smoker. He adamantly denies any alcohol. Please see exposure history above. ALLERGIES: No known drug allergies. MEDICATIONS: At home, included Crestor, Prozac, metoprolol, metformin, lisinopril, Humulin, Augmentin 875 p.o. b.i.d. of which he took a few doses, Z- Charles which he also took perhaps 2-3 doses, and aspirin. Medications presently include norepinephrine. He was given a dose of Zosyn 4.5 g, 1 g of vancomycin, and levofloxacin 750 mg. He is also on Solu-Medrol 125 mg q.6 hours. PHYSICAL EXAM: VITAL SIGNS: T-current 37, T-max same. Heart rate is 88, blood pressure 84/48 on 10 mcg of norepinephrine. GENERAL: Somewhat disheveled male, nontoxic with a face mask in place, looks short of breath. HEENT: Atraumatic, normocephalic. Pupils equal, round, reactive to light. Extraocular movements are intact. No conjunctival injection, icterus, or petechiae. Mucous membranes are moist. Dentition in poor repair, but I cannot appreciate any oral lesions. Difficult to examine his oropharynx given the face mask and difficulty breathing. No discharge from the nares or sinus process tenderness. Trachea is midline. NECK: No cervical or supraclavicular adenopathy. CARDIOVASCULAR: S1, S2. I cannot appreciate any rubs, gallops, or murmurs. LUNGS: Diminished breath sounds at both lung bases. Poor inspiratory effort. ABDOMEN: Soft. No organomegaly or tenderness to palpation. EXTREMITIES: His hands are notable for sausage digits in both hands with extreme tenderness with flexion and extension. The feet are unremarkable. He does have some mild discomfort flexing and extending his wrists as well. The knees, elbows, shoulders, and rest of the joints are without evidence of arthritis. SKIN: The skin is notable for multiple erythematous, raised, serpiginous macules/patches, some of which have central clearing and almost appear targetoid on his thighs. These are scattered on his forehead, anterior chest, arms, abdomen, anterior aspects of his lower extremities, and groin. They spare his palms and soles. He has no lesions on his back or buttocks. They are blanching and nonpruritic. There are no bullae and no vesicles. There are no intraoral lesions. NEUROLOGIC: He is alert and oriented x3. Moving all 4 extremities. MICROBIOLOGIC DATA: Sputum culture is pending. Nasal respiratory panel PCR showed human rhinovirus/enterovirus. Urine culture, blood cultures x2 are pending. White blood cell count of 17, down from 34 upon admission. Hematocrit of 45, platelet count of 284. 92% neutrophils. No eosinophils. BUN and creatinine 31/1.2, creatinine down from 1.5 on admission. Sodium of 133 , AST 26, ALT 39, alkaline phosphatase 99, total bilirubin 0.3. Urinalysis showed highly concentrated specimen. Urine Legionella antigen pending. RADIOGRAPHIC DATA: As outlined above. IMPRESSION: 67-year-old recently homeless, diabetic male with coronary artery disease and obstructive sleep apnea, admitted with sepsis and evidence of pneumonia on chest CT. He also has an unusual rash on the front of his body only, that has aspects that look almost like erythema multiforme. He has no mucous membrane lesions. 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 Insofar as the rash is concerned, I do not feel that this represents more concerning etiologies such as measles, meningococcus, or Carrizales-Harish syndrome as a reaction to recent antibiotics. Thankfully, there is no mucous membrane involvement. That being said, this rash could be a drug eruption, albeit an unusual presentation. The arthralgias and rash are somewhat early for serum sickness, and he only had a few doses of Augmentin. Erythema multiforme can also be caused by pathogens such as mycoplasma. This is not hot tub folliculitis, and does not look typical for a viral exanthem, either. Also of concern would be a vasculitic process, such as polyangiitis with granulomatosis, although patient clearly has septic physiology, the rash does not look consistent with a vasculitis, and there is no evidence of renal involvement. PLAN: 1. Agree with discontinuation of Zosyn in case the rash represents a beta- lactam allergy. 2. Start Vancomycin, Meropenem, and continue levofloxacin for atypical coverage. Will pare down antibiotics accordingly depending on patient's clinical course and microbiology obtained. Will cover broadly up front given clinical deterioration, relative immunosuppression from his multiple comorbidities including diabetes and tobacco use disorder, and risk for MRSA in the setting of homelessness. 3. Initiate droplet precautions for rhinovirus/enterovirus, although doubt this is the primary public transit bus driver of his sepsis. 4. Check HIV, RPR, ANCA testing, GREG, mycoplasma IgM/IgG, hepatitis A, B, C serologies, and parvovirus serologies. 5. Consider skin biopsy if rash worsens. 6. Check inflammatory markers. Thank you very much for consulting Infectious Diseases. Over 90 minutes spent with this patient today. I will continue to follow this patient with you. /[id number]/MODL MTDD
[2017-10-15] MEDS ORDERED: CALCIUM GLUCONATE 50 ML IV ONE (16:57)
[2017-10-15] MEDS ORDERED: PROTOCOL CALCIUM 1 DOSE IV PRN (16:57)
[2017-10-15] MEDS: VANCOMYCIN 1.25 GM in NS 250 ML IV SCH (17:18)
[2017-10-15] MEDS ORDERED: CALCIUM GLUCONATE 1 GM in D5W 50 ML IV ONE (17:30)
[2017-10-15] MEDS ORDERED: INSULIN LISPRO 100 UNIT/ML SC SCH (18:00)
[2017-10-15] MEDS: methylPREDNISolone SOD SUCC 125 MG/2 ML VIAL IVP SCH ×2 (18:17→23:36)
[2017-10-15] MEDS: FAMOTIDINE 20 MG/NACL 50 ML IV SCH (20:07)
[2017-10-15] MEDS ORDERED: INSULIN LISPRO 100 UNIT/ML SC ONE (22:47)
[2017-10-15] MEDS: ACETAMINOPHEN 325 MG TAB PO PRN (23:36)
[2017-10-15] MEDS: MELATONIN 3 MG TAB PO SCH (23:48)
[2017-10-16] MEDS: INSULIN GLARGINE 100 UNITS/ML UNIT SC SCH ×2 (03:33→20:51)
[2017-10-16] MEDS ORDERED: CALCIUM GLUCONATE 50 ML IV ONE (04:07)
[2017-10-16] MEDS ORDERED: CALCIUM GLUCONATE 1 GM in NS 50 ML IV ONE (04:30)
[2017-10-16] MEDS: VANCOMYCIN 1.25 GM in NS 250 ML IV SCH (05:55)
[2017-10-16] MEDS: methylPREDNISolone SOD SUCC 125 MG/2 ML VIAL IVP SCH (06:16)
--- NOTE | 2017-10-16 08:33 | PCMIDPN ---
Assessment/Plan: #Sepsis/hypoxia: only test positive so far is Enterovirus. CT personally reviewed by me and shows some consolidation RLL. Query component of aspiration. Much better this AM. Persistent Leukocytosis but on steroids. --considering legionella, aspiration PNA, severe viral infection with occult underlying lung disease --dc meropenem, vancomycin --continue high dose levofloxacin for CAP, aspiration and atypical coverage --droplet precautions --multiple serologies are still pending, will follow up #Rash: completely resolved, unclear etiology. query due to enterovirus vs drug reaction #Blood cx / CoNS c/w contaminate #Diarrhea: no further, dc cdiff testing for now microbiology 10/15 blood cx 02/13 blood cx : CoNS 10/16 sputum cx: pending Resp PCR: enterovirus meds meropenem 1gm IV q8, #1 vancomycin IV, #1 levofloxacin 750mg IV daily, #2 Solu-Medrol 60 mg IV daily Subjective: patient feels lots better, cough better slept for the first time in a long time no diarrhea about to stand with PT Objective: Vital Signs Temp Pulse Resp BP Pulse Ox 36.6 C 84 24 H 150/56 H 95 10/16/17 04:00 10/16/17 08:10 10/16/17 08:10 10/16/17 08:10 10/16/17 08:10 Microbiology 10/15/17 14:00 - Final Sputum, Expectorated 10/15/17 12:45 Respiratory Panel (PCR) - Final Nasal, Sinus - [place] Viral Transport Human Rhinovirus/Enterovirus Laboratory Results 10/16/17 03:15 10/16/17 03:15 10/15/17 10/16/17 10/17/17 05:59 05:59 05:59 Intake Total 6926 Output Total 1525 175 Balance 5401 -175 ESR 31 MM/HR (0-20) H 10/15/17 18:00 C-Reactive Protein 406.4 mg/L (<10.0) H 10/15/17 18:00 - Physical Exam General Appearance: alert, no apparent distress EENT: dry mucous membranes, No thrush Respiratory: wheezing, coarse breath sounds, No accessory muscle use, No crackles Neck: supple Cardiac/Chest: regular rate, rhythm Extremities: other (B arm and hand edema), No pedal edema Abdomen: normal bowel sounds, non-tender, soft Skin: No jaundice, No pallor, No rash Neuro/Psych: alert, normal mood/affect, oriented x 3 - Line/s RUE PICC Lines: No drainage, No erythema - Time Spent With Patient Time Spent with Patient: greater than 35 minutes Time Spent with Patient: Greater than 35 minutes spent on this patients care, greater than 50% of time spent counseling, educating, and coordinating care regarding the above mentioned plan. ICD10 Worksheet Patient Problems: Problems Problem Status Onset Hypoxic Acute Pneumonia Acute Sepsis Acute Septic shock Acute
[2017-10-16] MEDS: MEROPENEM 1 GM in NS 100 ML IV SCH (09:08)
[2017-10-16] MEDS: INSULIN LISPRO 100 UNIT/ML SC SCH ×3 (09:09→18:20)
[2017-10-16] MEDS: FAMOTIDINE 20 MG/NACL 50 ML IV SCH (09:36)
[2017-10-16] MEDS: ENOXAPARIN 40 MG/0.4 ML SYR SC SCH (09:36)
--- NOTE | 2017-10-16 12:05 | HOSPPROG ---
Hospitalist Progress Note Assessment/Plan: #Septic shock: from Enterovirus, atypical PNA. IV Levaquin Sputum, strep, Legionella pending. Wean off pressors # Acute hypoxic respiratory failure secondary to pneumonia: cont nebs/steroids. Likely underlying COPD as well # Lactic acidosis secondary to acute infection: improving with intravenous fluids. # Acute kidney injury: from infection, decreased p.o. intake. Improving # Diarrhea: Clostridium difficile pending #Sore throat: no neck abscess. Cyst at brachiocephalic vein; does not appear to necrotic #Leukocytosis: from acute infection,hemoconcentrated with dehydration. Steroids contributing too. #Hypotension: from sepsis. Improved with intravenous fluids. Negative troponin , no chest pain #Maculopapular rash: resolved. Viral or abx reaction? Steroids may have helped. Not typical for hot tub folliculitis. #Arthralgias: specifically hands. RF mildly up, can be nonspecific, GREG and other vasculitis studies pending. #Tobacco dependence: Declines nicotine patch. #Coronary artery disease: Resume statin, aspirin and Plavix. # Hypertension: Hold antihypertensive with sepsis. # Depression: Resume home medications. # Diabetes: SSI #DVT: lovenox ICU admission for IV abx, pressors. Subjective: still tired, but feeling better. Less pain in hands Objective: Vital Signs Temp Pulse Resp BP Pulse Ox 36.5 C 87 26 H 109/62 97 10/16/17 09:00 10/16/17 10:00 10/16/17 10:00 10/16/17 10:00 10/16/17 10:00 Microbiology 10/15/17 14:00 - Final Sputum, Expectorated 10/15/17 12:45 Respiratory Panel (PCR) - Final Nasal, Sinus - [place] Viral Transport Human Rhinovirus/Enterovirus Laboratory Results 10/16/17 03:15 10/16/17 03:15 10/15/17 10/16/17 10/17/17 05:59 05:59 05:59 Intake Total 6926 Output Total 1525 175 Balance 5401 -175 PT 16.8 SEC (12.0-15.0) H 10/15/17 04:52 INR 1.34 (0.83-1.16) H 10/15/17 04:52 - Time Spent With Patient Time Spent with Patient: greater than 35 minutes Time Spent with Patient: Greater than 35 minutes spent on this patients care, greater than 50% of time spent counseling, educating, and coordinating care regarding the above mentioned plan. - Physical Exam Constitutional: other (appears brighter today) Eyes: PERRL Ears, Nose, Mouth, Throat: poor dentition, dry mucous membranes Cardiovascular: regular rate and rhythym Respiratory: rhonchi Gastrointestinal: normoactive bowel sounds, soft, non-tender abdomen Genitourinary: no bladder fullness Skin: rash (rash resolved) Musculoskeletal: other (hand swelling down a bit. Less pain with fingers extension on right hand. Elbows, knees, ankles not involved) Neurologic: AAOx3, CN II-XII Intact Psychiatric: interacting appropriately ICD10 Worksheet Patient Problems: Problems Problem Status Onset Hypoxic Acute Pneumonia Acute Sepsis Acute Septic shock Acute
[2017-10-16] MEDS: NS 1,000 ML IV SCH ×2 (13:23→22:15)
[2017-10-16] MEDS: ACETAMINOPHEN 325 MG TAB PO PRN ×2 (14:53→20:07)
--- NOTE | 2017-10-16 14:54 | PDINTPN ---
Shipping Weigher Progress Note Assessment/Plan: 67 M with CAD, DM, GIANFRANCO seen initially in ER 10/13 and diagnosed with bronchitis, treated with augmentin and zithromax as well as albuterol and dc'd to [facility]. He returned 10/15 with fevers and chills, a wbc of 34, and hypotension. He was treated again with broad spectrum antibioptics, had a PICC line placed for levophed and given high flow oxygen. A chest CT showed probable PNA. * Septic shock- he responded well to aggressive IVF and pressors in addition to abx with a rapid recovery. Now off pressors with adequate UOP and BP. Source is presumably lungs; nasal swab with enterovirus. Meropenem and vanco dc'd by ID today and several serologies pending (eg GREG, ANCA). Coag negative staph likely contaminant. * Rash- improved with change in abx yesterday as well as steroids. Solumedrol reduced to 60/day starting in am; plan 3-4 days total. * GIANFRANCO- OK to use [facility] CPAP for now. Subjective: feels much better today, though complaining of buttocks pain relieved with repositioning. Objective: Vital Signs Temp Pulse Resp BP Pulse Ox 35.3 C L 83 22 H 118/63 93 10/16/17 13:45 10/16/17 13:45 10/16/17 13:45 10/16/17 13:45 10/16/17 13:45 Microbiology 10/15/17 14:00 - Final Sputum, Expectorated 10/15/17 12:45 Respiratory Panel (PCR) - Final Nasal, Sinus - [place] Viral Transport Human Rhinovirus/Enterovirus Laboratory Results 10/16/17 03:15 10/16/17 03:15 10/15/17 10/16/17 10/17/17 05:59 05:59 05:59 Intake Total 6926 Output Total 1525 425 Balance 5401 -425 PT 16.8 SEC (12.0-15.0) H 10/15/17 04:52 INR 1.34 (0.83-1.16) H 10/15/17 04:52 Physical Exam - Physical Exam General Appearance: WD/WN, alert, no apparent distress EENT: PERRL/EOMI Neck: supple Respiratory: lungs clear, normal breath sounds, No respiratory distress, No accessory muscle use Cardiac/Chest: regular rate, rhythm, No edema Abdomen: non-tender, soft, No distended Skin: normal color, warm/dry, No cyanosis Lymphatic: no adenopathy Extremities: No pedal edema Neuro/Psych: alert, normal mood/affect, oriented x 3 ICD10 Worksheet Patient Problems: Problems Problem Status Onset Hypoxic Acute Pneumonia Acute Sepsis Acute Septic shock Acute
[2017-10-16] MEDS ORDERED: FLUoxetine 20 MG CAP PO SCH (16:00)
--- NOTE | 2017-10-16 16:23 | PDMN ---
Medical Necessity Medical necessity: Pt meets IP criteria per MD & MCG [id number]; est los >2 mn for eval/tx of pneumonia w/septic shock, elevated WBC, lactic acidosis, tachypnea ( RR 32) acute hypoxic respiratory failure (90% on 10 lpm Oxymask), acute kidney injury, rash & C-diff; admit to SDU for further workup/monitoring, IV abx, IVFs , respiratory supportive care & therapies; hx homelessness, CAD, HTN, diabetes; per H&P & order 10/15/17
[2017-10-16] MEDS ORDERED: D50W 25 GM/50 ML SYR IVP PRN (18:22)
[2017-10-16] MEDS ORDERED: INSULIN LISPRO 100 UNIT/ML SC ONE (18:30)
[2017-10-16] MEDS ORDERED: NS BOLUS 500 ML (Wide open) IV ONE (18:30)
[2017-10-16] MEDS: OMEGA-3 FATTY ACIDS 1,000 MG CAP PO SCH (20:06)
[2017-10-16] MEDS: FAMOTIDINE 20 MG TAB PO SCH (20:06)
[2017-10-16] MEDS: MELATONIN 3 MG TAB PO SCH (20:07)
[2017-10-17] MEDS ORDERED: LORazepam 0.5 MG TAB PO ONE (03:29)
[2017-10-17 04:59] LABS: HEPATITIS B SURFACE ANTIGEN NEGATIVE (NEGATIVE)
[2017-10-17 05:11] LABS: HEPATITIS A ANTIBODY TOTAL NEGATIVE (NEGATIVE); HEPATITIS B CORE AB TOTAL NEGATIVE (NEGATIVE); HEPATITIS C ANTIBODY TOTAL NEGATIVE (NEGATIVE); HIV TYPE 1 AND 2 NEGATIVE (NEGATIVE)
--- NOTE | 2017-10-17 08:49 | HOSPPROG ---
Hospitalist Progress Note Assessment/Plan: #Septic shock: from Enterovirus, atypical PNA. IV Levaquin Sputum, strep, Legionella pending. Wean off pressors #DM with hyperglycemia: change to oral pred, increase Lantus # Acute hypoxic respiratory failure secondary to pneumonia: down to 2L cont nebs /steroids. Likely underlying COPD as well # Lactic acidosis: from secondary to acute infection: improving with intravenous fluids. # Acute kidney injury: resolved #Sore throat: no neck abscess. Cyst at brachiocephalic vein; does not appear to necrotic #Leukocytosis: trending down #Hypotension: from sepsis. Improved with intravenous fluids. Negative troponin , no chest pain #Maculopapular rash: resolved. Viral or abx reaction? Steroids may have helped. Not typical for hot tub folliculitis. #Arthralgias: specifically hands. RF mildly up, can be nonspecific, GREG and other vasculitis studies pending. #Tobacco dependence: Declines nicotine patch. #Coronary artery disease: Resume statin, aspirin and Plavix. # Hypertension: Hold antihypertensive with sepsis. # Depression: Resume home medications #DVT: lovenox ICU admission for IV abx, pressors. Subjective: still coughing Objective: Vital Signs Temp Pulse Resp BP Pulse Ox 36.3 C 116 H 23 H 131/78 H 94 10/17/17 07:43 10/17/17 07:43 10/17/17 07:43 10/17/17 07:43 10/17/17 07:43 Microbiology 10/15/17 14:00 - Final Sputum, Expectorated Laboratory Results 10/17/17 04:45 10/17/17 04:45 10/16/17 10/17/17 10/18/17 05:59 05:59 05:59 Intake Total 6926 3634 100 Output Total 1525 1800 200 Balance 5401 1834 -100 PT 16.8 SEC (12.0-15.0) H 10/15/17 04:52 INR 1.34 (0.83-1.16) H 10/15/17 04:52 - Time Spent With Patient Time Spent with Patient: greater than 35 minutes Time Spent with Patient: Greater than 35 minutes spent on this patients care, greater than 50% of time spent counseling, educating, and coordinating care regarding the above mentioned plan. - Physical Exam Constitutional: no apparent distress Ears, Nose, Mouth, Throat: dry mucous membranes Cardiovascular: irregularly irregular Respiratory: rhonchi Gastrointestinal: normoactive bowel sounds Genitourinary: no bladder fullness Skin: warm, rash (resolved) Musculoskeletal: other (fingers less swollen, min pain with extension) Neurologic: CN II-XII Intact Psychiatric: interacting appropriately ICD10 Worksheet Patient Problems: Problems Problem Status Onset Hypoxic Acute Pneumonia Acute Sepsis Acute Septic shock Acute
[2017-10-17] MEDS ORDERED: methylPREDNISolone SOD SUCC 125 MG/2 ML VIAL IVP SCH (09:00)
[2017-10-17] MEDS: INSULIN LISPRO 100 UNIT/ML SC SCH ×3 (09:15→19:07)
[2017-10-17] MEDS: OMEGA-3 FATTY ACIDS 1,000 MG CAP PO SCH ×2 (09:16→20:41)
[2017-10-17] MEDS: predniSONE 20 MG TAB PO SCH (09:16)
[2017-10-17] MEDS: ROSUVASTATIN CALCIUM 10 MG TAB PO SCH (09:16)
[2017-10-17] MEDS: FAMOTIDINE 20 MG TAB PO SCH ×2 (09:16→20:41)
[2017-10-17] MEDS: FLUoxetine 20 MG CAP PO SCH (09:16)
[2017-10-17] MEDS: ASPIRIN 325 MG TAB PO SCH (09:16)
[2017-10-17] MEDS: ENOXAPARIN 40 MG/0.4 ML SYR SC SCH (09:16)
--- NOTE | 2017-10-17 09:40 | PDINTPN ---
Drafter Directional Survey Progress Note Assessment/Plan: 67 M with CAD, DM, GIANFRANCO seen initially in ER 10/13 and diagnosed with bronchitis, treated with augmentin and zithromax as well as albuterol and dc'd to [facility]. He returned 10/15 with fevers and chills, a wbc of 34, and hypotension. He was treated again with broad spectrum antibioptics, had a PICC line placed for levophed and given high flow oxygen. A chest CT showed probable PNA. * Septic shock- he responded well to aggressive IVF and pressors in addition to abx with a rapid recovery. Remains off pressors with adequate UOP and BP. Source is presumably lungs; nasal swab with rhino/enterovirus. Meropenem and vanco dc'd by ID 10/16 and several serologies pending (eg GREG, ANCA). Coag negative staph likely contaminant. Serologies negative to date except RF ( including GREG), which has a poor positive predictive value for RA. In any case, an eventual (eg outpatient) rheumatology evaluation might be indicated. * Rash- improved with change in abx 10/15 as well as steroids. Solumedrol reduced to 60/day starting in am; plan 3-4 days total. Agree with oral prednisone * GIANFRANCO- OK to use [facility] CPAP for now. * Dispo: stable for floor 10/17/17 09:26 Subjective: continues to improve; though reports poor sleep and mild weakness. Objective: Vital Signs Temp Pulse Resp BP Pulse Ox 36.3 C 116 H 23 H 131/78 H 94 10/17/17 07:43 10/17/17 07:43 10/17/17 07:43 10/17/17 07:43 10/17/17 07:43 Microbiology 10/15/17 14:00 - Final Sputum, Expectorated Laboratory Results 10/17/17 04:45 10/17/17 04:45 10/16/17 10/17/17 10/18/17 05:59 05:59 05:59 Intake Total 6926 3634 100 Output Total 1525 1800 200 Balance 5401 1834 -100 PT 16.8 SEC (12.0-15.0) H 10/15/17 04:52 INR 1.34 (0.83-1.16) H 10/15/17 04:52 Physical Exam - Physical Exam General Appearance: alert, no apparent distress EENT: PERRL/EOMI Neck: supple Respiratory: lungs clear, normal breath sounds, decreased breath sounds, No respiratory distress, No accessory muscle use Cardiac/Chest: regular rate, rhythm, edema Abdomen: non-tender, soft, No distended Skin: normal color, warm/dry, cyanosis Lymphatic: no adenopathy Extremities: No pedal edema Neuro/Psych: alert, normal mood/affect, oriented x 3 ICD10 Worksheet Patient Problems: Problems Problem Status Onset Hypoxic Acute Pneumonia Acute Sepsis Acute Septic shock Acute
--- NOTE | 2017-10-17 12:02 | CPEKG ---
Test Reason : OPEN Blood Pressure : / mmHG Vent. Rate : 125 BPM Atrial Rate : 000 BPM P-R Int : 115 ms QRS Dur : 102 ms QT Int : 345 ms P-R-T Axes : 000 080 033 degrees QTc Int : 498 ms Atrial fibrillation Confirmed by Levy Correa ([id number]) on 10/17/2017 12:01:52 PM Referred By: Confirmed By:Levy Correa
--- NOTE | 2017-10-17 12:31 | PCMIDPN ---
Assessment/Plan: #Sepsis/hypoxia: only test positive so far is Enterovirus. leukocytosis improving, AF, Presumed aspiration vs CAP vs non-bacterial infection. respiratory status much improved, wbc trending down --rec 5 days levofloxacin, change to PO now tolerating full diet , stop date 10/20 --call ID for additional questions #Blood cx 02/13 CoNS c/w contaminate and Anyi in sputum c/w colonization microbiology 10/15 blood cx / blood cx : CoNS 10/16 sputum cx: anyi Resp PCR: enterovirus meds levofloxacin 750mg IV daily, #3 Pred 40mg daily Subjective: Respiratory status significantly improved. Worried about inability to sleep tonight. No diarrhea Objective: Vital Signs Temp Pulse Resp BP Pulse Ox 36.3 C 107 H 30 H 109/72 94 10/17/17 11:39 10/17/17 11:39 10/17/17 11:39 10/17/17 11:39 10/17/17 11:39 Microbiology 10/15/17 08:15 Urine Culture - Final Urine,Clean Catch 10/15/17 14:00 - Final Sputum, Expectorated Laboratory Results 10/17/17 04:45 10/17/17 04:45 10/16/17 10/17/17 10/18/17 05:59 05:59 05:59 Intake Total 6926 3634 100 Output Total 1525 1800 450 Balance 5401 1834 -350 ESR 31 MM/HR (0-20) H 10/15/17 18:00 C-Reactive Protein 406.4 mg/L (<10.0) H 10/15/17 18:00 - Physical Exam General Appearance: alert, no apparent distress Respiratory: other (Decreased breath sounds throughout), No accessory muscle use , No crackles, No wheezing Neck: supple Cardiac/Chest: tachycardia, irregularly irregular Extremities: No pedal edema Abdomen: non-tender, soft, distended (Mild) Male Genitalia: No louie Skin: No rash Neuro/Psych: alert, normal mood/affect, oriented x 3 - Time Spent With Patient Time Spent with Patient: greater than 25 minutes Time Spent with Patient: Greater than 25 minutes spent on this patients care, greater than 50% of time spent counseling, educating, and coordinating care regarding the above mentioned plan. ICD10 Worksheet Patient Problems: Problems Problem Status Onset Hypoxic Acute Pneumonia Acute Sepsis Acute Septic shock Acute
[2017-10-17] MEDS: METOPROLOL TARTRATE 25 MG TAB PO SCH ×2 (12:32→20:42)
--- NOTE | 2017-10-17 15:49 | ASMTCMCOM ---
CM Note CM Note Notes: Met with patient who is concerned about his belongings. Sent an email to Florencio at the [facility]( with patient's permission) to notify them he is in the hospital and request they hold his locker and belongings until he d/c'es . Patient also wants his brothers contacted, Chris Moreira in [place] and Blane Moreira in [place], [place]. Blane works for [employer] and [employer]. Chris is semi retired but lives on [address] in [place]. CM to continue search for them to notify them patient is in the hospital.Patient has been given the number for the "[employer] as the of his landlord owns these. He is wanting to notify his landlord he is in the hosptial as well. He rents a room from Marce Herrera. He does not have her phone number and does not know how to spell her last name. I encouraged him to keep trying to call the [employer] as a way to make contact with them. Patient will most likely d/c back to the senior living unless he qualifies for SNF rehab. Patient does have both Medicare and Medicaid. D/C plan TBD. CM will follow. Date Signed: 10/17/2017 03:48 PM Electronically Signed By:Modesta Paul LCSW
[2017-10-17] MEDS: MELATONIN 3 MG TAB PO SCH (20:41)
[2017-10-17] MEDS: INSULIN GLARGINE 100 UNITS/ML UNIT SC SCH (20:49)
--- NOTE | 2017-10-17 23:08 | CPEKG ---
Test Reason : OPEN Blood Pressure : / mmHG Vent. Rate : 091 BPM Atrial Rate : 090 BPM P-R Int : 167 ms QRS Dur : 099 ms QT Int : 382 ms P-R-T Axes : 055 255 049 degrees QTc Int : 471 ms Sinus rhythm Multiform ventricular premature complexes Left anterior fascicular block Low voltage, extremity leads Anteroseptal infarct, old Confirmed by Anmol Campbell ([id number]) on 10/17/2017 11:08:10 PM Referred By: Confirmed By:Anmol Campbell
--- NOTE | 2017-10-18 08:59 | HOSPPROG ---
Hospitalist Progress Note Assessment/Plan: #DM with hyperglycemia: change to oral pred, cont Lantus. #New atrial fibrillation: triggered by infection, NSR now. BB #RUE swelling: superficial thrombophlebitis # Acute hypoxic respiratory failure: from URI, +/- PNA. Down to 2L cont nebs/ steroids. Likely underlying COPD as well -Stop Levaquin 10/20 # Lactic acidosis: from secondary to acute infection: improving with intravenous fluids. # Acute kidney injury: resolved #Septic shock: from Enterovirus, atypical PNA. IV Levaquin Sputum, strep, Legionella pending. Off pressors. CT neck, no abscess. Cyst at brachiocephalic vein #Hypotension: from sepsis. Improved with intravenous fluids. Negative troponin , no chest pain #Maculopapular rash: resolved. Viral or abx reaction? Steroids may have helped. Not typical for hot tub folliculitis. #Arthralgias: specifically hands. Improved. RF mildly up, but nonspecific. GREG, PR3, syphilis negative. ANCAs, Parovirus/Mycoplasma pending #Tobacco dependence: Declines nicotine patch. #CAD: statin, aspirin and Plavix. # Hypertension: Hold antihypertensive with sepsis. # Depression: Resume home medications. #DVT: lovenox Disp: inpatient admission for PT, abx. Med surg Subjective: min pain in hands, walking in his room Objective: Vital Signs Temp Pulse Resp BP Pulse Ox 36.4 C 78 16 131/90 H 94 10/18/17 07:48 10/18/17 07:48 10/18/17 07:48 10/18/17 07:48 10/18/17 07:48 Microbiology 10/15/17 14:00 - Final Sputum, Expectorated 10/15/17 08:15 Urine Culture - Final Urine,Clean Catch Laboratory Results 10/18/17 04:50 10/18/17 04:50 10/17/17 10/18/17 10/19/17 05:59 05:59 05:59 Intake Total 3634 5066 Output Total 1800 1800 175 Balance 1834 3266 -175 PT 16.8 SEC (12.0-15.0) H 10/15/17 04:52 INR 1.34 (0.83-1.16) H 10/15/17 04:52 - Time Spent With Patient Time Spent with Patient: greater than 35 minutes Time Spent with Patient: Greater than 35 minutes spent on this patients care, greater than 50% of time spent counseling, educating, and coordinating care regarding the above mentioned plan. - Physical Exam Constitutional: other (appears brighter today) Eyes: PERRL Ears, Nose, Mouth, Throat: moist mucous membranes Cardiovascular: regular rate and rhythym Respiratory: reduced air movement, rhonchi Gastrointestinal: normoactive bowel sounds, soft, non-tender abdomen Skin: warm Musculoskeletal: other (min swelling hands, no pain with extension) Neurologic: AAOx3, CN II-XII Intact Psychiatric: interacting appropriately ICD10 Worksheet Patient Problems: Problems Problem Status Onset Hypoxic Acute Pneumonia Acute Sepsis Acute Septic shock Acute
[2017-10-18] MEDS: ENOXAPARIN 40 MG/0.4 ML SYR SC SCH (09:02)
[2017-10-18] MEDS: OMEGA-3 FATTY ACIDS 1,000 MG CAP PO SCH ×2 (09:03→20:52)
[2017-10-18] MEDS: ROSUVASTATIN CALCIUM 10 MG TAB PO SCH (09:03)
[2017-10-18] MEDS: FLUoxetine 20 MG CAP PO SCH (09:03)
[2017-10-18] MEDS: ASPIRIN 325 MG TAB PO SCH (09:03)
[2017-10-18] MEDS: FAMOTIDINE 20 MG TAB PO SCH ×2 (09:04→20:52)
[2017-10-18] MEDS: predniSONE 20 MG TAB PO SCH (09:04)
[2017-10-18] MEDS: METOPROLOL TARTRATE 25 MG TAB PO SCH ×2 (09:04→20:52)
[2017-10-18] MEDS: INSULIN LISPRO 100 UNIT/ML SC SCH ×3 (09:05→16:26)
[2017-10-18] MEDS ORDERED: SODIUM POLY SULF 15 GM/60 ML BOTTLE PO ONE (16:29)
[2017-10-18] MEDS: MELATONIN 3 MG TAB PO SCH (20:52)
[2017-10-18] MEDS: INSULIN GLARGINE 100 UNITS/ML UNIT SC SCH (20:54)
--- NOTE | 2017-10-19 06:56 | CPEKG ---
Test Reason : OPEN Blood Pressure : / mmHG Vent. Rate : 078 BPM Atrial Rate : 078 BPM P-R Int : 178 ms QRS Dur : 107 ms QT Int : 424 ms P-R-T Axes : 062 115 026 degrees QTc Int : 484 ms Sinus rhythm Left posterior fascicular block Borderline prolonged QT interval Confirmed by Levy Correa ([id number]) on 10/19/2017 6:56:22 AM Referred By: Confirmed By:Levy Correa
[2017-10-19] MEDS: INSULIN LISPRO 100 UNIT/ML SC SCH ×3 (08:17→18:13)
[2017-10-19] MEDS: OMEGA-3 FATTY ACIDS 1,000 MG CAP PO SCH ×2 (08:18→21:27)
[2017-10-19] MEDS: METOPROLOL TARTRATE 25 MG TAB PO SCH ×2 (08:21→21:28)
[2017-10-19] MEDS: FAMOTIDINE 20 MG TAB PO SCH ×2 (08:21→21:28)
[2017-10-19] MEDS: predniSONE 20 MG TAB PO SCH (08:21)
[2017-10-19] MEDS: FLUoxetine 20 MG CAP PO SCH (08:22)
[2017-10-19] MEDS: ASPIRIN 325 MG TAB PO SCH (08:22)
[2017-10-19] MEDS: ROSUVASTATIN CALCIUM 10 MG TAB PO SCH (08:26)
[2017-10-19] MEDS: ENOXAPARIN 40 MG/0.4 ML SYR SC SCH (08:26)
--- NOTE | 2017-10-19 16:25 | HOSPPROG ---
Hospitalist Progress Note Assessment/Plan: Subjective Follow-up on acute hypoxic respiratory failure and pneumonia. Patient states he is overall feeling better and states she has been very pleased with his hospitalization here at [facility]. He was very appreciative of the care provided. Objective Vitals signs as detailed below Exam General-patient resting comfortably when I came into the room. He was arousable and awake alert conversant no acute distress Heart-regular no murmurs appreciated Lungs-mild rhonchi anteriorly no significant wheezing Abdomen-soft nontender nondistended normal bowel sounds -no Wang catheter in place Extremities-no significant pitting edema or calf pain with palpation Labs as detailed below Assessment and plan Acute hypoxic respiratory failure-secondary to pneumonia however patient may have underlying COPD as he is a smoker. We discussed outpatient pulmonary function test once clinically resolved from his pneumonia. Pneumonia-continue course of Levaquin. Lactic acidosis-resolved. Acute kidney injury-likely related to hypovolemia and shock. Resolved. Septic shock-resolved. Rash-suspecting possible drug rash. Seems to be resolving by exam. Atrial fibrillation-likely precipitated from stress from pneumonia. Continue metoprolol. I think we can follow for now but may need to discuss anticoagulation if recurrence. Continue aspirin Plavix for now. Superficial thrombophlebitis-supportive measures. If worsening edema consider repeat ultrasound to monitor for progression. Coronary artery disease-asymptomatic continue aspirin statin and Plavix. Hypertension-appears controlled with current antihypertensives in place. Diabetes mellitus type 2-continue with Lantus. However he may need dosing creases some readings into the upper 200s. Depression-continue Prozac. DVT prophylaxis-Lovenox. Disposition-anticipate he will be able to return home once medically ready. Objective: Vital Signs Temp Pulse Resp BP Pulse Ox 36.9 C 76 20 127/64 H 93 10/19/17 15:55 10/19/17 15:55 10/19/17 15:55 10/19/17 15:55 10/19/17 15:55 Microbiology 10/15/17 14:00 - Final Sputum, Expectorated Laboratory Results 10/19/17 05:16 10/19/17 05:16 10/18/17 10/19/17 10/20/17 05:59 05:59 05:59 Intake Total 5066 1500 Output Total 1800 975 675 Balance 3266 525 -675 PT 16.8 SEC (12.0-15.0) H 10/15/17 04:52 INR 1.34 (0.83-1.16) H 10/15/17 04:52 ICD10 Worksheet Patient Problems: Problems Problem Status Onset Hypoxic Acute Pneumonia Acute Sepsis Acute Septic shock Acute
--- NOTE | 2017-10-19 17:17 | ASMTCMCOM ---
CM Note CM Note Notes: Spoke with pt re; dc poc. PT recommends SNF and pt is agreeable, CM to send a few referrals. He is open to SNFs outside of [place] if necessary. DC Plan: SNF Date Signed: 10/19/2017 04:58 PM Electronically Signed By:Graciela Lindo RN
[2017-10-19] MEDS: MELATONIN 3 MG TAB PO SCH (21:27)
[2017-10-19] MEDS: INSULIN GLARGINE 100 UNITS/ML UNIT SC SCH (21:33)
[2017-10-20] MEDS: INSULIN LISPRO 100 UNIT/ML SC SCH ×3 (08:03→17:48)
[2017-10-20] MEDS: OMEGA-3 FATTY ACIDS 1,000 MG CAP PO SCH ×2 (08:48→20:56)
[2017-10-20] MEDS: METOPROLOL TARTRATE 25 MG TAB PO SCH ×2 (08:48→20:55)
[2017-10-20] MEDS: ROSUVASTATIN CALCIUM 10 MG TAB PO SCH (08:49)
[2017-10-20] MEDS: FLUoxetine 20 MG CAP PO SCH (08:49)
[2017-10-20] MEDS: FAMOTIDINE 20 MG TAB PO SCH (08:49)
[2017-10-20] MEDS: ASPIRIN 325 MG TAB PO SCH (08:49)
[2017-10-20] MEDS: ENOXAPARIN 40 MG/0.4 ML SYR SC SCH (08:50)
[2017-10-20] MEDS: predniSONE 20 MG TAB PO SCH (08:50)
--- NOTE | 2017-10-20 16:31 | ASMTCMCOM ---
CM Note CM Note Notes: Met with pt, received call from Analy at [facility] in [place]. They need to come to hospital to meet pt but cannot come until Sunday, pt is agreeable to SNF. CM spoke w/Kavya at the [facility] and they have pt's belongings, CM to pickle water pump operator for pt. DC Plan: SNF Date Signed: 10/20/2017 04:30 PM Electronically Signed By:Graciela Lindo RN
--- NOTE | 2017-10-20 17:04 | HOSPPROG ---
Hospitalist Progress Note Assessment/Plan: Subjective Follow-up on acute hypoxic respiratory failure and pneumonia. No acute events overnight. Patient states that his breathing seems to be stable as compared to yesterday. Nose particular complaints of cough. We reviewed that he was hopeful to enter short-term rehab before discharging. Objective Vitals signs as detailed below Exam General-patient resting comfortably when I came into the room. He was arousable and awake alert conversant no acute distress Heart-regular no murmurs appreciated Lungs-normal respiratory effort and no significant wheezing Abdomen-soft nontender nondistended normal bowel sounds -no Wang catheter in place Extremities-no significant pitting edema or calf pain with palpation Labs as detailed below Assessment and plan Acute hypoxic respiratory failure-secondary to pneumonia however patient may have underlying COPD as he is a smoker. H his PCR was positive for rhino virus. He may have secondary bacterial pneumonia from the initial rhino virus infection. His lungs sound normal today and I think we can stop prednisone at this time and continue with nebulizers as needed. I was able to wean him off of oxygen during my evaluation so consider his hypoxia resolved if he can maintain on room air. Pneumonia-continue course of Levaquin. Atrial fibrillation-likely precipitated from stress from pneumonia. Continue metoprolol. I think we can follow for now but may need to discuss anticoagulation if recurrence. Continue aspirin for now. Superficial thrombophlebitis-supportive measures. If worsening edema consider repeat ultrasound to monitor for progression. Coronary artery disease-asymptomatic continue aspirin statin. Hypertension-appears controlled with current antihypertensives in place. Diabetes mellitus type 2-continue with Lantus. However he may need dosing creases some readings into the upper 200s. Depression-continue Prozac. DVT prophylaxis-Lovenox. Disposition-anticipate he will be able to return home once medically ready. Objective: Vital Signs Temp Pulse Resp BP Pulse Ox 36.9 C 69 16 135/74 H 94 10/20/17 15:14 10/20/17 15:14 10/20/17 15:14 10/20/17 15:14 10/20/17 15:14 Microbiology 10/15/17 08:15 Urine Culture - Final Urine,Clean Catch 10/15/17 14:00 - Final Sputum, Expectorated Sputum Culture - Final Anyi Albicans Laboratory Results 10/19/17 05:16 10/19/17 05:16 10/19/17 10/20/17 10/21/17 05:59 05:59 05:59 Intake Total 1500 Output Total 975 1625 Balance 525 -1625 PT 16.8 SEC (12.0-15.0) H 10/15/17 04:52 INR 1.34 (0.83-1.16) H 10/15/17 04:52 ICD10 Worksheet Patient Problems: Problems Problem Status Onset Hypoxic Acute Pneumonia Acute Sepsis Acute Septic shock Acute
[2017-10-20] MEDS: INSULIN GLARGINE 100 UNITS/ML UNIT SC SCH (20:55)
[2017-10-20] MEDS: MELATONIN 3 MG TAB PO SCH (20:56)
[2017-10-21] MEDS: ENOXAPARIN 40 MG/0.4 ML SYR SC SCH (09:39)
[2017-10-21] MEDS: OMEGA-3 FATTY ACIDS 1,000 MG CAP PO SCH ×2 (09:40→20:46)
[2017-10-21] MEDS: FLUoxetine 20 MG CAP PO SCH (09:41)
[2017-10-21] MEDS: ASPIRIN 325 MG TAB PO SCH (09:41)
[2017-10-21] MEDS: ROSUVASTATIN CALCIUM 10 MG TAB PO SCH (09:41)
[2017-10-21] MEDS: METOPROLOL TARTRATE 25 MG TAB PO SCH ×2 (09:42→20:45)
[2017-10-21] MEDS: INSULIN LISPRO 100 UNIT/ML SC SCH ×4 (09:54→18:48)
--- NOTE | 2017-10-21 16:15 | HOSPPROG ---
Hospitalist Progress Note Assessment/Plan: Subjective Follow-up on acute hypoxic respiratory failure and pneumonia. No acute events overnight. I reviewed with him that he has completed a course of antibiotics and has done well in regards to not needing any supplemental oxygen. Currently awaiting placement for rehabilitation. Objective Vitals signs as detailed below Exam General-patient resting comfortably when I came into the room. He was arousable and awake alert conversant no acute distress Heart-regular no murmurs appreciated Lungs-normal respiratory effort and no significant wheezing Abdomen-soft nontender nondistended normal bowel sounds -no Wang catheter in place Extremities-no significant pitting edema or calf pain with palpation. No significant right upper extremity swelling. Labs as detailed below Assessment and plan Acute hypoxic respiratory failure-resolved. Secondary to pneumonia however patient may have underlying COPD as he is a smoker. H his PCR was positive for rhino virus. He may have secondary bacterial pneumonia from the initial rhino virus infection. He has completed a course of Levaquin and steroids have been stopped at this time. Pneumonia-course of Levaquin complete. Atrial fibrillation-likely precipitated from stress from pneumonia. Continue metoprolol. I think we can follow for now but may need to discuss anticoagulation if recurrence. Continue aspirin for now. Superficial thrombophlebitis-supportive measures. If worsening edema consider repeat ultrasound to monitor for progression. Stable on exam without any edema. Coronary artery disease-asymptomatic continue aspirin and statin. Hypertension-appears controlled with current antihypertensives in place. Diabetes mellitus type 2-continue with Lantus. However he may need dosing creases some readings into the upper 200s. Depression-continue Prozac. DVT prophylaxis-Lovenox. Disposition-looking at options for rehab placement. Objective: Vital Signs Temp Pulse Resp BP Pulse Ox 36.6 C 64 16 123/68 H 96 10/21/17 15:09 10/21/17 15:09 10/21/17 15:09 10/21/17 15:09 10/21/17 15:09 Laboratory Results 10/19/17 05:16 10/19/17 05:16 10/20/17 10/21/17 10/22/17 05:59 05:59 05:59 Intake Total 2250 Output Total 1625 1400 1250 Balance -1625 850 -1250 PT 16.8 SEC (12.0-15.0) H 10/15/17 04:52 INR 1.34 (0.83-1.16) H 10/15/17 04:52 ICD10 Worksheet Patient Problems: Problems Problem Status Onset Hypoxic Acute Pneumonia Acute Sepsis Acute Septic shock Acute
[2017-10-21] MEDS: INSULIN GLARGINE 100 UNITS/ML UNIT SC SCH (20:46)
[2017-10-21] MEDS: MELATONIN 3 MG TAB PO SCH (20:46)
--- NOTE | 2017-10-22 10:04 | HOSPPROG ---
Hospitalist Progress Note Assessment/Plan: 67-year-old homeless man was admitted with right lower lobe pneumonia acute respiratory failure and septic shock. He has had a prolonged hospitalization but has improved significantly and is currently D condition to a point where he needs rehab. # pneumonia status post treatment with Levaquin, acute hypoxic respiratory failure has resolved and he is no longer septic. # COPD, presumed given history of tobacco use status post a course of steroids # superficial thrombophlebitis # paroxysmal atrial fibrillation, likely precipitated from stress of pneumonia. Currently on metoprolol but anticoagulation has been held given patient has been in sinus rhythm and is on aspirin. Not a good anticoagulation candidate given his history of homelessness # coronary artery disease, asymptomatic on aspirin and statin # hypertension, controlled # diabetes, type 2 currently on Lantus adjust as needed # depression on Prozac # DVT prophylaxis currently on Lovenox Disposition: Pending, patient needs skilled rehab in awaiting evaluation today. Subjective: Patient new to me and chart reviewed. No new complaints today. Objective: Vital Signs Temp Pulse Resp BP Pulse Ox 36.7 C 65 12 119/92 H 97 10/22/17 08:00 10/22/17 08:00 10/22/17 08:00 10/22/17 08:00 10/22/17 08:00 Laboratory Results 10/19/17 05:16 10/19/17 05:16 10/21/17 10/22/17 10/23/17 05:59 05:59 05:59 Intake Total 2250 1200 350 Output Total 1400 3075 400 Balance 850 -1875 -50 PT 16.8 SEC (12.0-15.0) H 10/15/17 04:52 INR 1.34 (0.83-1.16) H 10/15/17 04:52 - Physical Exam Constitutional: no apparent distress, chronically ill appearing Cardiovascular: regular rate and rhythym Respiratory: no respiratory distress, no rales or rhonchi, No expiratory wheeze Psychiatric: interacting appropriately ICD10 Worksheet Patient Problems: Problems Problem Status Onset Hypoxic Acute Pneumonia Acute Sepsis Acute Septic shock Acute
[2017-10-22] MEDS: OMEGA-3 FATTY ACIDS 1,000 MG CAP PO SCH (10:50)
[2017-10-22] MEDS: ROSUVASTATIN CALCIUM 10 MG TAB PO SCH (10:53)
[2017-10-22] MEDS: ASPIRIN 325 MG TAB PO SCH (10:53)
[2017-10-22] MEDS: FLUoxetine 20 MG CAP PO SCH (10:53)
[2017-10-22] MEDS: METOPROLOL TARTRATE 25 MG TAB PO SCH (10:54)
[2017-10-22] MEDS: ENOXAPARIN 40 MG/0.4 ML SYR SC SCH (10:55)
[2017-10-22 10:56] VITALS: BP 112/92
[2017-10-22] MEDS: INSULIN LISPRO 100 UNIT/ML SC SCH ×2 (10:56→10:57)
--- NOTE | 2017-10-22 12:09 | ASMTCMCOM ---
CM Note CM Note Notes: Savana from [facility] came and assessed pt. [facility] is able to accept pt. Eyad from [facility] stopped by to meet w/ pt. Eyad will meet w/ his DON and let CM know. CM spoke to Dr. Pardo and she reports that pt will most likely be ready to d/c soon. CM completed non triggering pasrr. CM to follow. Plan: SNF; most likely [facility] Date Signed: 10/22/2017 12:08 PM Electronically Signed By:MASOOD Burgess
--- NOTE | 2017-10-22 14:39 | PDIAF ---
- Diagnosis Diagnosis: pneumonia, copd, diabetes, htn. Code Status: Full Code - Medication Management Discharge Medications: Medications to Continue on Transfer Aspirin [Aspirin 325 mg (*)] 325 mg PO DAILY 10/15/17 [Last Taken 10/14/17] Metoprolol Succinate Xr [Toprol Xl 25 mg (*)] 25 mg PO DAILY 10/15/17 [Last Taken 10/14/17] [place]-3 Fatty Acids [Fish Oil 1000 mg (*)] 2,000 mg PO BID 10/15/17 [Last Taken 10/14/17] Rosuvastatin Calcium [Crestor 20mg (*)] 20 mg PO DAILY 10/15/17 [Last Taken 04/01] metFORMIN HCL [Metformin HCl ER] 1,000 mg PO BID 10/15/17 [Last Taken 10/14/17] FLUoxetine [Prozac 20 MG (*)] 60 mg PO DAILY 10/16/17 [Last Taken 10/14/17] Acetaminophen [Tylenol 325mg (*)] 650 mg PO Q4HRS PRN tab 10/22/17 [Last Taken Unknown] Albuterol [Proventil Neb] 3 ml IH Q2HRS PRN deyvial 10/22/17 [Last Taken Unknown] Insulin Glargine [Lantus Syringe] 40 units SC HS unit 10/22/17 [Last Taken Unknown] Insulin Lispro [HumaLOG LISPRO] 0 unit SC TIDMEAL unit 10/22/17 [Last Taken Unknown] Melatonin [Melatonin 3 MG (*)] 6 mg PO HS tab 10/22/17 [Last Taken Unknown] Chcf Antibiotics: finished abx Discharge Medications: Refer to the Discharge Home Medication list for PRN reason. - Orders Services needed: Registered Nurse, Certified Structural Iron Worker, Master Tinner Automatic , Physical Therapy, Occupational Therapy (monitor BP, add lisinopril if BP increases. He was on 20mg daily but BP currently low) Isolation Type: Droplet Isolation Diet Recommendation: no restrictions on diet Diet Texture: Regular Texture Diet, Thin Liquids, Meds Whole w/Liquids - Follow Up Care Current Providers and Referrals: Patient,NotPresent [Unknown] - As per Instructions
--- NOTE | 2017-10-22 15:04 | GDS ---
DIAGNOSES: 1. Pneumonia associated with acute hypoxic respiratory failure and septic shock, improved. 2. Probable chronic obstructive pulmonary disease with history of tobacco use. 3. Episode of atrial fibrillation in the hospital, resolved and in sinus rhythm. 4. Hypertension. 5. Diabetes. 6. Homelessness. 7. Coronary artery disease, status post RCA stent in 2010. PAST MEDICAL HISTORY: Depression. CONSULTATIONS: Include: Critical Care Medicine, Infectious Disease. PROCEDURES DONE: 1. Neck CT: No evidence for abscess or prevertebral soft tissue swelling. 2. Chest CT: Moderate bronchitis, atelectasis, and probable pneumonia in both lung bases, right gre ater than left, evidence of atherosclerotic disease, 3 x 2 cm cystic lesion at the junction of the le ft brachiocephalic vein and superior vena cava of unclear clinical significance, may represent benign cyst or less likely a necrotic lymph node. Consider followup in 3 months. 3. PICC line insertion. 4. Extremity venous study: Right upper extremity superficial thrombophlebitis. HOSPITAL COURSE: The patient is a 67-year-old homeless man who was brought in from a detention with ge neralized weakness. On admission, he was found to have probable pneumonia associated with acute resp iratory failure and septic shock and was admitted to the intensive care unit. He was placed on the s eptic protocol, started on IV pressors, antibiotics, steroids, and nebulizers. Over the course of hi s hospitalization, he improved significantly. He eventually was transferred to the floor. He comple criss a course of antibiotics for his pneumonia. His COPD and respiratory failure resolved, and he is currently on room air. However, with his extended hospitalization and acute illness, he became quite deconditioned and needs further rehabilitation at a skilled rehab facility. Please put under proced ures done. Other issues during his hospitalization include diabetes. He was continued on insulin an d sliding scale. Will resume his metformin at the time of discharge. His high blood pressure: He w as septic and low. He was started back on metoprolol when he went into nonsustained episode of AFib. However, his lisinopril is being held and can be resumed as an outpatient once his blood pressure r esponds. He also had a brief episode of AFib felt secondary to his acute pulmonary illness itself, r esolved and spontaneously went into sinus rhythm and has stayed in sinus rhythm since then. Will con tinue his Toprol-XL. The rest of his medical issues remained stable. Condition on discharge is good . He has been afebrile. He is 92% on room air, blood pressure 112/92. DISCHARGE MEDICATIONS: Please see discharge medication form. FOLLOWUP: He will be discharged to skilled rehab and will follow up with his primary care provider. Only followup issue remains a followup CT scan of his chest to look at that cystic structure noted a korin in 3 months. /[id number]/MODL
--- NOTE | 2017-10-22 15:35 | ASDISCHSUM ---
Discharge Information Plan Status:SNF Medically Cleared to Leave:10/22/2017 Discharge Date:10/22/2017 CM D/C Disposition: ADT D/C Disposition:Assisted Facility Projected Discharge Date:10/22/2017 11:00 AM Transportation at D/C: Discharge Delay Reason: Follow-Up Date:10/22/2017 11:00 AM Discharge Slot: Final Diagnosis: Placement Information Referral Type:*Group Home/SNF Referral ID:[id number] Provider Name:[facility] [place] Address 1:[address] Address 2: City:[place] Selection Factors: State:[place] Patient Contact Information Contact Name:SABI Relationship: Address: Home Phone: Work Phone: City:[place] Alternate Phone: [facility] Code:[place] Email: Financial Information Financial Class:Medicare Primary Plan Desc:MEDICARE INPATIENT Primary Plan Number:[id number] Secondary Plan Desc:MED[place] Secondary Plan Number:[id number] Assessment Information LACE LACE Length of stay for Answers: Less than 1 day current admission Acuity / Level of Answers: Yes Care: Did the patient have an inpatient admission? # of Emergency department Answers: 1-2 visits in the last 6 months Social determinants Answers: Homelessness (street, half-way) Lack of community resources and/or lack of social support (no pcp, lives alone, transportation, catarino d) Score: 11 Date Signed: 10/15/2017 11:00 AM Electronically Signed By:Marilyn Ziegler LCSW [facility] CM Progress Note CM Note CM Note Notes: Pt is currently living at the [facility]. This bond underwriter attempted to speak with pt. but due to his current condition (sepsis, pneumonia) he was extremely lethargic and unable to arouse. Pt has not been in the area for some time. His chart indicates that he is retired but income is unknown. Additional resources and assessment may be beneficial. DESHAUN THOMAS CM to follow Date Signed: 10/15/2017 11:12 AM Electronically Signed By:Marilyn Ziegler LCSW [facility] Progress Note CM Note CM Note Notes: Met with patient who is concerned about his belongings. Sent an email to Florencio at the [facility]( with patient's permission) to notify them he is in the hospital and request they hold his locker and belongings until he d/c'es . Patient also wants his brothers contacted, Chris Moreira in [place] and Blane Moreira in [place], [place]. Blane works for [employer] and [employer]. Chris is semi retired but lives on [address] in [place]. CM to continue search for them to notify them patient is in the hospital.Patient has been given the number for the "[employer]" as the of his landlord owns these. He is wanting to notify his landlord he is in the hosptial as well. He rents a room from Marce [employer]. He does not have her phone number and does not know how to spell her last name. I encouraged him to keep trying to call the [facility] as a way to make contact with them. Patient will most likely d/c back to the half-way unless he qualifies for SNF rehab. Patient does have both Medicare and Medicaid. D/C plan TBD. CM will follow. Date Signed: 10/17/2017 03:48 PM Electronically Signed By:Modesta Paul LCSW [facility] CM Progress Note CM Note CM Note Notes: Spoke with pt re; dc poc. PT recommends SNF and pt is agreeable, CM to send a few referrals. He is open to SNFs outside of [place] if necessary. DC Plan: [facility] Date Signed: 10/19/2017 04:58 PM Electronically Signed By:Graciela Lindo RN [facility] Progress Note CM Note CM Note Notes: Met with pt, received call from Analy at [facility] in [place]. They need to come to hospital to meet pt but cannot come until Sunday, pt is agreeable to SNF. CM spoke w/Kavya at the [facility] and they have pt's belongings, CM to cherry picker operator for pt. DC Plan: [facility] Date Signed: 10/20/2017 04:30 PM Electronically Signed By:Graciela Lindo RN [facility] Progress Note CM Note CM Note Notes: Savana from [facility] came and assessed pt. [facility] is able to accept pt. Eyad from [facility] stopped by to meet w/ pt. Eyad will meet w/ his DON and let CM know. CM spoke to Dr. Pardo and she reports that pt will most likely be ready to d/c soon. CM completed non triggering pasrr. CM to follow. Plan: SNF; most likely [facility] Date Signed: 10/22/2017 12:08 PM Electronically Signed By:MASOOD Burgess Case Management Discharge Plan Note Case Management Discharge Discharge Order Complete? Answers: Yes Patient to Obtain Answers: Other Notes: [facility] Transportation Arranged Answers: Other Notes: [facility] W/C Transport will Pick (Date 10/22/2017 04:30 PM & Time) EMTALA Complete Answers: No Case Management Transport Answers: Yes Form Complete Faxed Final Orders Answers: Yes Agency/Facility Transfer Answers: Yes Report Printed & Faxed to Receiving Agency Family Notified Answers: No Discharge Comments Notes: Pts case discussed w/ Dr. Pardo. Pt can d/c today to [facility]. DC orders sent. CM provided KAVITA Castillo w/ phone number to give report. CM available for changes. Plan: [facility] Date Signed: 10/22/2017 03:34 PM Electronically Signed By:MASOOD Burgess LACE LACDaphne Length of stay for Answers: 7-13 days current admission Acuity / Level of Answers: Yes Care: Did the patient have an inpatient admission? # of Emergency department Answers: 1-2 visits in the last 6 months Social determinants Answers: Homelessness (street, half-way) Lack of community resources and/or lack of social support (no pcp, lives alone, transportation, catarino d) Score: 16 Date Signed: 10/22/2017 03:35 PM Electronically Signed By:MASOOD Burgess Intervention Information
== END 2017-10-22 17:15 | DRG 871 ==
LOC: EDUNIT# → F2N 12:24 → F3E 10-19 10:01
PROVIDERS: ADMIT Family Medicine; ATTEND Family Medicine
PROC: 02H633Z Insertion of Infusion Device into Right Atrium, Percutaneous Approach (ICD-10-PCS; principal; 2017-10-15)
DX: A41.9 Sepsis, unspecified organism (principal); J18.9 Pneumonia, unspecified organism; R65.21 Severe sepsis with septic shock; J96.01 Acute respiratory failure with hypoxia; J98.11 Atelectasis; J44.9 Chronic obstructive pulmonary disease, unspecified; F17.200 Nicotine dependence, unspecified, uncomplicated; I10 Essential (primary) hypertension; E11.9 Type 2 diabetes mellitus without complications; Z59.0 Homelessness; I25.10 Atherosclerotic heart disease of native coronary artery without angina pectoris; Z95.5 Presence of coronary angioplasty implant and graft; R21 Rash and other nonspecific skin eruption; E86.9 Volume depletion, unspecified; G47.33 Obstructive sleep apnea (adult) (pediatric)
CPT/HCPCS: 82435-PO; 82565-PO; 82947-PO; 83516-90; 83520-90; 84132-PO; 84295-PO; 84484-PO; 84520-PO; 85014-PO; 86255-90; 86704-90; 86708-90; 86738-90; 87449-90; 92526-GN; 92610-GN; 96365; 97110-GP; 97116-GP; 97162-GP; 97165-GO; 97535-GO; C1751; G0472; G8978-GP-CL; G8979-GP-CI; G8987-GO-CL; G8988-GO-CI; G8989-GO-CJ; G8996-GN-CI; G8997-GN-CH; G8998-GN-CH; J0610; J1650; J1815; J1956; J2185; J2405; J2543; J2930; J3370; J7512; J7613; Q9967